=== PATIENT | female | born 1935 ===

== ENCOUNTER 2022-04-22 10:00 | Inpatient (IN) | payer MEDICARE ==
[2022-04-22] MEDS: Acetaminophen 500 MG TAB PO SCH ×2 (18:03→23:39)
[2022-04-22 19:15] LABS: #Basophils 0.1 thou/uL (0.0-0.2); #Eosinphils 0.3 thou/uL (0.0-0.7); #Lymphocytes 1.7 thou/uL (1.20-3.40); #Monocytes 0.7 thou/uL (0.11-0.59); #Neutrophils 8.1 thou/uL (1.40-6.50); %Basophils 1.3 % (0.0-1.0); %Eosinophils 3.1 % (0.0-10.0); %Lymphocytes 15.2 % (21.0-51.0); %Monocytes 6.1 % (0.0-10.0); %Neutrophils 74.3 % (42.0-75.0); Hemoglobin 9.7 g/dL (12.0-16.0); Mean Corpuscular HGB CONC 32.4 g/dL (32.0-36.0); Mean Corpuscular Hemoglobin 29.1 pg (27.0-31.0); Mean Corpuscular Volume 90.1 fL (78.0-98.0); Mean Platelet Volume 7.9 fL (7.4-10.4); Platelet Count 294 thou/uL (130-400); RBC Distribution Width 13.9 % (11.5-14.5); Red Blood Cell (RBC) Count 3.31 mill/uL (4.20-5.40); White Blood Cell (WBC) Count 10.8 thou/uL (4.8-10.8)
[2022-04-22] MEDS ORDERED: Polyethylene Glycol 3350 17 GM Packet PO PRN (20:30)
[2022-04-22] MEDS: Rosuvastatin 10 MG TAB PO SCH (21:12)
[2022-04-22] MEDS: Aspirin 81 mg Enteric Coated Tablet PO SCH (21:12)
[2022-04-23] MEDS: Acetaminophen ER (8hr) 650 MG TAB PO SCH (05:56)
[2022-04-23 07:44] LABS: ALT (SGPT) 13 U/L (8-55); AST (SGOT) 19 U/L (5-34); Albumin 3.3 g/dL (3.4-4.8); Alkaline Phosphatase 59 U/L (40-110); Anion Gap 16 mmol/L (10-20); BUN (Urea Nitrogen) 12 mg/dL (9.8-20.1); Bilirubin, Total 0.9 mg/dL (0.2-1.2); Calc. Creatinine Clearance 55 mL/min (70-130); Calcium 8.8 mg/dL (7.8-10.44); Carbon Dioxide 24 mmol/L (23-31); Chloride 102 mmol/L (98-107); Globulin 2.4 g/dL (2.4-3.5); Glucose 128 mg/dL (83-110); Potassium 4.4 mmol/L (3.5-5.1); Protein, Total 5.7 g/dL (5.8-8.1); Sodium 138 mmol/L (136-145)
[2022-04-23] MEDS: Aspirin 81 mg Enteric Coated Tablet PO SCH ×2 (08:06→20:38)
[2022-04-23] MEDS: Ferrous Sulfate 325 MG TAB PO SCH (08:06)
[2022-04-23] MEDS: Rosuvastatin 10 MG TAB PO SCH (20:38)
[2022-04-24] MEDS: Acetaminophen ER (8hr) 650 MG TAB PO SCH (06:03)
[2022-04-24] MEDS: Aspirin 81 mg Enteric Coated Tablet PO SCH ×2 (08:23→20:12)
[2022-04-24] MEDS: Ferrous Sulfate 325 MG TAB PO SCH (08:23)
[2022-04-24] MEDS: Rosuvastatin 10 MG TAB PO SCH (20:12)
[2022-04-25] MEDS: Acetaminophen ER (8hr) 650 MG TAB PO SCH (05:39)
[2022-04-25] MEDS: Aspirin 81 mg Enteric Coated Tablet PO SCH ×2 (09:01→20:56)
[2022-04-25] MEDS: Ferrous Sulfate 325 MG TAB PO SCH (09:01)
[2022-04-25] MEDS: Rosuvastatin 10 MG TAB PO SCH (20:56)
[2022-04-26] MEDS: Acetaminophen ER (8hr) 650 MG TAB PO SCH (05:28)
[2022-04-26] MEDS: traMADol HCl 50 MG TAB PO PRN (07:58)
[2022-04-26] MEDS: Ferrous Sulfate 325 MG TAB PO SCH (08:30)
[2022-04-26] MEDS: Aspirin 81 mg Enteric Coated Tablet PO SCH ×2 (08:31→20:10)
[2022-04-26 11:53] VITALS: BMI 24.7
[2022-04-26] MEDS: Acetaminophen 325 MG TAB PO PRN (16:20)
[2022-04-26] MEDS: Rosuvastatin 10 MG TAB PO SCH (20:10)
[2022-04-27] MEDS: Acetaminophen ER (8hr) 650 MG TAB PO SCH (05:30)
[2022-04-27] MEDS: traMADol HCl 50 MG TAB PO PRN ×2 (07:28→19:09)
[2022-04-27] MEDS: Aspirin 81 mg Enteric Coated Tablet PO SCH ×2 (08:04→20:25)
[2022-04-27] MEDS: Ferrous Sulfate 325 MG TAB PO SCH (08:04)
[2022-04-27] MEDS: Rosuvastatin 10 MG TAB PO SCH (20:25)
[2022-04-28] MEDS: Acetaminophen 325 MG TAB PO PRN (00:17)
[2022-04-28 00:21] LABS: Bacteria/HPF None Seen HPF (None Seen); RBC/HPF 0-3 HPF (0-3); Squamous Epithelial 0-3 HPF (0-3); Transitional Epithelial 0-3 HPF (None Seen)
[2022-04-28] MEDS: traMADol HCl 50 MG TAB PO PRN ×2 (04:59→20:09)
[2022-04-28] MEDS: Acetaminophen ER (8hr) 650 MG TAB PO SCH (05:00)
[2022-04-28] MEDS: Ferrous Sulfate 325 MG TAB PO SCH (08:24)
[2022-04-28] MEDS: Aspirin 81 mg Enteric Coated Tablet PO SCH ×2 (08:24→20:09)
[2022-04-28] MEDS: Ondansetron ODT 4 MG TAB SL PRN (13:08)
[2022-04-28] MEDS: Rosuvastatin 10 MG TAB PO SCH (20:09)
[2022-04-29] MEDS: traMADol HCl 50 MG TAB PO PRN (05:32)
[2022-04-29] MEDS: Acetaminophen ER (8hr) 650 MG TAB PO SCH (05:34)
[2022-04-29] MEDS: Aspirin 81 mg Enteric Coated Tablet PO SCH ×2 (08:30→20:50)
[2022-04-29] MEDS: Ferrous Sulfate 325 MG TAB PO SCH (08:31)
[2022-04-29] MEDS: Ondansetron ODT 4 MG TAB SL PRN (11:53)
[2022-04-29] MEDS: Rosuvastatin 10 MG TAB PO SCH (20:49)
[2022-04-30] MEDS: Acetaminophen ER (8hr) 650 MG TAB PO SCH (05:50)
[2022-04-30 07:20] VITALS: BP 126/76; TEMP 98.5
[2022-04-30] MEDS: Aspirin 81 mg Enteric Coated Tablet PO SCH (08:07)
[2022-04-30] MEDS: Ferrous Sulfate 325 MG TAB PO SCH (08:07)
== END 2022-04-30 15:45 | disposition home or self-care (01) | DRG 561 ==
LOC: MADMS 16:54
PROVIDERS: ADMIT Family Medicine; ATTEND Family Medicine
DX: S72.002D Fracture of unspecified part of neck of left femur, subsequent encounter for closed fracture with routine healing (principal); I10 Essential (primary) hypertension; E78.5 Hyperlipidemia, unspecified; Z96.642 Presence of left artificial hip joint; W19.XXXD Unspecified fall, subsequent encounter; R53.81 Other malaise; R11.2 Nausea with vomiting, unspecified; Z20.822 Contact with and (suspected) exposure to COVID-19; Z79.82 Long term (current) use of aspirin; Z79.899 Other long term (current) drug therapy; Z98.890 Other specified postprocedural states; Z90.710 Acquired absence of both cervix and uterus; Z90.49 Acquired absence of other specified parts of digestive tract
CPT/HCPCS: 36415; 80053; 81015; 85025; Q0162; U0003; U0005